=== PATIENT | female | born 1980 | race Caucasian/White ===

== ENCOUNTER → 2020-12-30 11:54 | Outpatient (CLI) | payer OTHER, SELFPAY ==
--- NOTE | ~2020-12-30 | CT_ITS ---
EXAMINATION: CT BRAIN W/O DATE: 12/30/2020 12:10 INDICATION: Persistent migraine headaches TECHNIQUE: Computed tomography (CT) of the head was performed without intravenous contrast. The dose- length product was 524.62 mGy-cm. Automated exposure control and iterative reconstruction technique w ere employed. COMPARISON: CT dated 03/21/2005 FINDINGS: Normal brain parenchymal volume for age. Normal german-white differentiation. No acute intrac ranial hemorrhage, infarction, mass or mass effect. No ventriculomegaly or midline shift. Midline sagittal images demonstrate a normal corpus callosum, c raniovertebral junction and sella turcica. Basilar cisterns are patent. Paranasal sinuses and mastoids are pneumatized. No depressed skull fractures. IMPRESSION: 1. No acute intracranial abnormality. Reviewed, dictated and finalized at location A.
== END ==
PROVIDERS: PCP Family Medicine; Visit Provider Physician Assistant
DX: G43.519 Persistent migraine aura without cerebral infarction, intractable, without status migrainosus (principal)
CPT/HCPCS: 70450